=== PATIENT | female | born 1975 | race Two or more races ===

== ENCOUNTER 2016-12-26 11:13 | Emergency (ER) | payer SELFPAY | END 2016-12-26 11:21 | disposition left against medical advice (07) | LOC: EDSEX → ED 11:13 | DX: Z02.89 Encounter for other administrative examinations (principal); R07.9 Chest pain, unspecified ==

== ENCOUNTER 2017-11-28 20:23 | Emergency (ER) | payer OTHER ==
--- NOTE | 2017-11-28 20:37 | ED PDOC ---
Arrival/HPI <Luciano Lyn - Last Filed: 11/28/17 22:09> - General Historian: Patient <Corine Carbajal - Last Filed: 11/29/17 01:32> - General Chief Complaint: Headache Time Seen by Provider: 11/28/17 20:28 - History of Present Illness Narrative History of Present Illness (Text): 11/28/17 20:38 42yo female with past medical history of hypertension and Asthma who present with complaint of sharp burning sensation radiating from her upper upper back to her posterior head and also on her left thigh. Notes that pain started 10minutes [employer]. She notes that she was seen here few days ago for lower back pain. Notes that her back pain has been improved with Ibuprofen. She denies focal weakness, nuchal ridigty, fever, chills, nausea, vomiting, slurred speech , visual changes, urinary/fecal incontinence, any other complaint. (Corine Carbajal) Past Medical History - Provider Review Nursing Documentation Reviewed: Yes - Infectious Disease Hx of Infectious Diseases: None - Tetanus Immunization Tetanus Immunization: Unknown - Cardiac Hx Cardiac Disorders: Yes Hx Hypertension: Yes - Psychiatric Hx Substance Use: No - Surgical History Hx Cholecystectomy: Yes <Corine Carbajal - Last Filed: 11/29/17 01:32> Family/Social History - Physician Review Nursing Documentation Reviewed: Yes Family/Social History: Unknown Family HX Smoking Status: Never Smoked Hx Alcohol Use: No Hx Substance Use: No <Corine Carbajal - Last Filed: 11/29/17 01:32> Allergies/Home Meds <Luciano Lyn - Last Filed: 11/28/17 22:09> <Corine Carbajal - Last Filed: 11/29/17 01:32> Allergies/Adverse Reactions: Allergies naproxen [From Aleve] Adverse Reaction (Verified 11/28/17 20:39) URTICARIA Home Medications: Home Meds Medication Instructions Recorded Confirmed Alprazolam [Xanax] 2 mg PO BID 11/28/17 11/28/17 Aspirin [Ecotrin] 81 mg PO DAILY 11/28/17 11/28/17 Cholecalciferol (Vitamin D3) 2,000 unit PO DAILY 11/28/17 11/28/17 [Vitamin D3] Ibuprofen [Motrin] 600 mg PO PRN PRN 11/28/17 11/28/17 Metoprolol Tartrate [Lopressor] 50 mg PO DAILY 11/28/17 11/28/17 Vitamin B Complex [Vitamin B50 1 cap PO DAILY 11/28/17 11/28/17 Super Complex] Review of Systems - Physician Review All systems were reviewed & negative as marked: Yes - Review of Systems Constitutional: Normal Eyes: Normal ENT: Normal Respiratory: Normal Cardiovascular: Normal Gastrointestinal: Normal Genitourinary Female: Normal Musculoskeletal: Neck Pain Skin: Normal Neurological: Headache. absent: Dizziness, Focal Weakness, Facial Droop Endocrine: Normal Hemo/Lymphatic: Normal Psychiatric: Normal <Corine Carbajal A - Last Filed: 11/29/17 01:32> Physical Exam Vital Signs Reviewed: Yes Temperature: Afebrile Blood Pressure: Normal Pulse: Regular Respiratory Rate: Normal Appearance: Positive for: Well-Appearing, Non-Toxic, Comfortable Pain Distress: None Mental Status: Positive for: Alert and Oriented X 3 - Systems Exam Head: Present: Atraumatic, Normocephalic Pupils: Present: PERRL Extroacular Muscles: Present: EOMI Conjunctiva: Present: Normal Mouth: Present: Moist Mucous Membranes Neck: Present: Normal Range of Motion Respiratory/Chest: Present: Clear to Auscultation, Good Air Exchange. No: Respiratory Distress, Accessory Muscle Use Cardiovascular: Present: Regular Rate and Rhythm, Normal S1, S2. No: Murmurs Abdomen: No: Tenderness, Distention, Peritoneal Signs Back: Present: Paraspinal Tenderness (Upper back/thoracic tenderness). No: Midline Tenderness, Pain with Leg Raise Upper Extremity: Present: Normal Inspection. No: Cyanosis, Edema Lower Extremity: Present: Normal Inspection. No: Edema Neurological: Present: GCS=15, CN II-XII Intact, Speech Normal Skin: Present: Warm, Dry, Normal Color. No: Rashes Psychiatric: Present: Alert, Oriented x 3, Normal Insight, Normal Concentration <Corine aCrbajal A - Last Filed: 11/29/17 01:32> Vital Signs Temp Pulse Resp BP Pulse Ox 11/28/17 23:06 72 19 145/87 99 11/28/17 20:37 98.1 F 77 16 144/50 L 98 Medical Decision Making <Luciano Lyn - Last Filed: 11/28/17 22:09> <Corine Carbajal - Last Filed: 11/29/17 01:32> ED Course and Treatment: 11/29/17 01:30 PT presented for stated history. She was neurologically intact and ambulatory. she have no meningeal signs. Her description of burning pain, sounds more like neuropathy. Head Ct was ordered to r/o any internal derangement and it was negative She was DC home and referred to a Neurologist. (Corine Carbajal) - RAD Interpretation Radiology Orders: 11/28/17 21:18 HEAD W/O CONTRAST [CT] Stat - Medication Orders Current Medication Orders: Discontinued Medications Ibuprofen (Motrin Tab) 600 mg PO STAT STA Stop: 11/28/17 21:35 Last Admin: 11/28/17 22:08 Dose: 600 mg Pregabalin (Lyrica) 50 mg PO ONCE STA Stop: 11/28/17 21:19 Last Admin: 11/28/17 21:25 Dose: Not Given Non-Admin Reason: Patient Refused - PA / POTTERY STRIPER / Resident Statement MD/ has reviewed & agrees with the documentation as recorded. <Luciano Lyn - Last Filed: 11/28/17 22:09> Disposition/Present on Arrival <Luciano Lyn - Last Filed: 11/28/17 22:09> - Present on Arrival Any Indicators Present on Arrival: No History of DVT/PE: No History of Uncontrolled Diabetes: No Urinary Catheter: No History of Decub. Ulcer: No History Surgical Site Infection Following: None - Disposition Have Diagnosis and Disposition been Completed?: Yes Disposition Time: 23:05 Patient Plan: Discharge <Corine Carbajal - Last Filed: 11/29/17 01:32> - Disposition Diagnosis: Headache, Neuropathy Disposition: HOME/ ROUTINE Condition: STABLE Discharge Instructions (ExitCare): Peripheral Neuropathy, Headache, Adult (DC) Additional Instructions: Follow up with your Doctor/Neurologist Return to Emergency department for any new or worsening symptoms Referrals: Rodo Mack MD [Staff Provider] - Follow up with primary Forms: [employer] ([place])
[2017-11-28 20:49] VITALS: TEMP 98.1
--- NOTE | 2017-11-28 22:56 | CT ---
EXAM: CT Head Without Intravenous Contrast EXAM DATE/TIME: 11/28/2017 9:18 PM CLINICAL HISTORY: The patient age is 42 years old and is female; Pain; Headache; Headache not specified Facility exam id and description: Ct heads head w/o contrast TECHNIQUE: Axial computed tomography images of the head/brain without intravenous contrast. All CT scans at this facility use one or more dose reduction techniques, viz.: automated exposure control; ma/kV adjustment per patient size (including targeted exams where dose is matched to indication; i.e. head); or iterative reconstruction technique. Coronal and sagittal reformatted images were created and reviewed. COMPARISON: No relevant prior studies available. FINDINGS: Brain: The white-montes differentiation is preserved demonstrating no definitive acute territorial type infarct. No definitive acute intracranial hemorrhage is seen. No significant white matter disease is visualized. There is calcification along the falx. Artifact limits evaluation of the left temporal lobe. Midline shift: There is no midline shift. Ventricles: No ventriculomegaly. Bones/joints: The calvarium demonstrates no evidence for a depressed fracture. Soft tissues: No acute abnormality. Sinuses: Unremarkable as visualized. No acute sinusitis. Mastoid air cells: No mastoid effusion. IMPRESSION: 1. No definitive acute intracranial abnormality.
[2017-11-28 23:08] VITALS: BP 145/87; PULSE 72; RESP 19; O2SAT 99
== END 2017-11-28 23:06 | disposition home or self-care (01) ==
LOC: ED 20:23
DX: R51 Headache (principal); G62.9 Polyneuropathy, unspecified; I10 Essential (primary) hypertension